=== PATIENT | male | born 1995 | race African-American/Black ===

== ENCOUNTER 2022-09-12 08:41 | Emergency (ER) | payer MEDICAID ==
[~2022-09-12] VITALS: Ht 167.6 cm; Wt 75.0 kg
[2022-09-12 08:49] VITALS: BP 152/103
[2022-09-12] MEDS ORDERED: DIPHENHYDRAMINE 50MG/ML VIAL IV ONE (09:45)
[2022-09-12] MEDS ORDERED: SODIUM CHLORIDE 0.9% 1,000 ML IV ONE (09:45)
[2022-09-12] MEDS ORDERED: PROCHLORPERAZINE 10MG/2ML VIAL IV ONE (09:45)
[2022-09-12 10:14] LABS: HEMATOCRIT. 48.6 % (42.0-52.0); HEMOGLOBIN. 16.6 g/dL (14.0-18.0); MEAN CORPUSCULAR VOLUME 90.6 fL (80.0-94.0); MEAN PLATELET VOLUME 11.8 fl (7.4-10.4); PLATELET 145 x1000/uL (130-400); RED BLOOD CELL COUNT 5.36 mill/uL (4.7-6.1); RED CELL DISTRIBUTION WIDTH 13.5 % (11.6-14.6)
[2022-09-12] MEDS ORDERED: FAMOTIDINE 20MG/2ML VIAL IV ONE (10:15)
[2022-09-12 10:49] LABS: PLATELET ESTIMATE NORMAL
[2022-09-12 10:55] LABS: CHLORIDE 101 mEq/L (98-107)
[2022-09-12] MEDS ORDERED: LORAZEPAM 2MG/ML CPJ IV ONE (12:30)
[2022-09-12] MEDS ORDERED: PROC-11 MT (13:20)
== END 2022-09-12 14:10 | disposition home or self-care (01) ==
LOC: ER 08:57
DX: R11.10 Vomiting, unspecified (principal); F12.10 Cannabis abuse, uncomplicated; J45.909 Unspecified asthma, uncomplicated; F41.9 Anxiety disorder, unspecified; Z87.11 Personal history of peptic ulcer disease
CPT/HCPCS: 36415; 80053; 83690; 85025; 96361; 96374; 96375; 99284; J0780; J1200; J2060; J3490; J7030